=== PATIENT | female | born 1970 | race Caucasian/White ===

== ENCOUNTER → 2018-03-14 | Outpatient (CLI) | payer BC ==
[~2018-03-14] VITALS: Ht 157.5 cm; Wt 56.0 kg
[~2018-03-14] MED LIST: ACETAMINOPHEN 500 MG TABLET PO ONE; BACITRACIN 50,000 UNIT ONE; BUPIVACAINE/PF 0.5% ONE; CEFAZOLIN 1,000 MG ONE; DEXAMETHASONE 4 MG/ML, 1ML ONE; EPINEPHRINE 1 MG/ML, 1ML ONE; FENTANYL PF 100 MCG/2ML IV PRN; FENTANYL PF 250 MCG/5ML ONE; GABAPENTIN 300 MG CAPSULE PO ONE; HEPARIN 1,000 UNITS/ML, 30ML ONE; HYDROmorphone 1 MG/ML, 1ML IV PRN; LABETALOL 5MG/ML, 20ML IV PRN; LACTATED RINGERS 1,000 ML IV SCH; LIDOCAINE 1%-EPI 1:100K, 30ML ONE; LIDOCAINE-MPF 1%, 2ML INFIL ONE; MEPERIDINE/PF 25MG/0.5ML IVPush PRN; MIDAZOLAM 1 MG/ML, 2ML ONE; MORPHINE SULFATE 4 MG/ML, 1ML IVPush PRN; ONDANSETRON 2MG/ML, 2ML IV PRN; ONDANSETRON 2MG/ML, 2ML ONE; ONDANSETRON ODT 8 MG PO PRN; OXYcodone 5 MG/5 ML ORAL.SOL UDC PO PRN; OxyconTIN ER 20 MG TAB.ER PO ONE; PROMETHAZINE 12.5 MG SUPP PR PRN; PROMETHAZINE 25 MG SUPP PR PRN; PROMETHAZINE 25 MG/ML, 1ML IM PRN; PROMETHAZINE 25 MG/ML, 1ML IV PRN; PROPOFOL 10 MG/ML, 20ML ONE; ROCURONIUM 10MG/ML,5ML ONE; SODIUM CHLORIDE 0.9% PF 10ML ONE; SUCCINYLCHOLINE 20 MG/ML, 10ML ONE; hydrALAzine 20 MG/ML, 1ML IV PRN
[2018-03-14 06:51] VITALS: BP 117/83
== END | disposition home or self-care (01) ==
LOC: ORIP 05:52 → CLISVCS 05:52 → UNDOADMIN 05:52 → EDSTATUS 07:30 → UNDODISIN 12:10 → ORIP 14:50 → 2NE 14:50
PROVIDERS: ATTEND Orthopaedic Surgery Orthopaedic Surgery of the Spine
DX: Z02.9 Encounter for administrative examinations, unspecified (principal)
CPT/HCPCS: 36415; 86850; 86900; 86923; J0171; J0690; J1100; J1644; J2250; J2405; J2704; J3010; J3490; J0330; J7120

== ENCOUNTER 2018-04-11 07:30 | Inpatient (IN) | payer BC ==
[~2018-04-11] VITALS: Ht 157.5 cm; Wt 53.1 kg
[2018-04-11] MEDS ORDERED: LACTATED RINGERS 1,000 ML IV SCH (12:18)
[2018-04-11 12:33] VITALS: BP 105/75
[2018-04-11] MEDS ORDERED: LIDOCAINE 1%-EPI 1:100K, 30ML ONE (13:29)
[2018-04-11] MEDS ORDERED: THROMBIN 5,000 UNIT VIAL TP ONE (13:29)
[2018-04-11] MEDS ORDERED: BUPIVACAINE/PF-EPI 0.5% 1:200K ONE (13:29)
[2018-04-11] MEDS ORDERED: BACITRACIN 50,000 UNIT ONE (13:29)
[2018-04-11] MEDS ORDERED: HEPARIN 1,000 UNITS/ML, 30ML ONE (13:39)
[2018-04-11] MEDS ORDERED: FENTANYL PF 250 MCG/5ML ONE (13:54)
[2018-04-11] MEDS ORDERED: MIDAZOLAM 1 MG/ML, 2ML ONE (13:57)
[2018-04-11] MEDS ORDERED: PROPOFOL 50 ML ONE (13:59)
[2018-04-11] MEDS ORDERED: EPHEDRINE 50 MG/ML, 1ML ONE (14:03)
[2018-04-11] MEDS ORDERED: GENTAMICIN 80 MG/2 ML ONE (14:21)
[2018-04-11] MEDS ORDERED: ALBUTEROL/IPRATROPIUM 2.5MG/0.5MG, 3 ML NPPB PRN (15:00)
[2018-04-11] MEDS ORDERED: ONDANSETRON ODT 8 MG PO PRN (15:00)
[2018-04-11] MEDS ORDERED: PROCHLORPERAZINE 5 MG/ML, 2ML IM PRN (15:00)
[2018-04-11] MEDS ORDERED: DIAZEPAM 5 MG/ML, 2ML IVPush PRN (15:00)
[2018-04-11] MEDS ORDERED: ONDANSETRON 2MG/ML, 2ML IV PRN ×2 (15:00→18:30)
[2018-04-11] MEDS ORDERED: ACETAMINOPHEN 325 MG TABLET PO PRN (15:00)
[2018-04-11] MEDS ORDERED: FENTANYL PF 100 MCG/2ML IV PRN (15:00)
[2018-04-11] MEDS ORDERED: OXYcodone 5 MG/5 ML ORAL.SOL UDC PO PRN (15:00)
[2018-04-11] MEDS ORDERED: MEPERIDINE/PF 25MG/0.5ML IVPush PRN (15:00)
[2018-04-11] MEDS ORDERED: CEFAZOLIN 1,000 MG ONE (15:47)
[2018-04-11] MEDS ORDERED: ROCURONIUM 10MG/ML,5ML ONE (15:47)
[2018-04-11] MEDS ORDERED: ONDANSETRON 2MG/ML, 2ML ONE (15:47)
[2018-04-11] MEDS ORDERED: NEOSTIGMINE 1 MG/ML, 10ML ONE (15:47)
[2018-04-11] MEDS ORDERED: DEXAMETHASONE 4 MG/ML, 1ML ONE (15:47)
[2018-04-11] MEDS ORDERED: SUCCINYLCHOLINE 20 MG/ML, 10ML ONE (15:47)
[2018-04-11] MEDS ORDERED: PROPOFOL 10 MG/ML, 20ML ONE (15:47)
[2018-04-11] MEDS ORDERED: GLYCOPYRROLATE 0.2MG/1ML, 5ML ONE (15:47)
[2018-04-11] MEDS ORDERED: FENTANYL PF 100 MCG/2ML ONE (16:17)
[2018-04-11] MEDS ORDERED: HYDROmorphone 2 MG/ML, 1ML ONE (16:18)
[2018-04-11] MEDS: HYDROmorphone 1 MG/ML, 1ML IV PRN ×2 (16:22→16:56)
[2018-04-11] MEDS ORDERED: DIAZEPAM 5 MG/ML, 2ML IV PRN (18:30)
[2018-04-11] MEDS ORDERED: HYDROcodone/APAP 5/325 TABLET PO PRN (18:30)
[2018-04-11] MEDS ORDERED: OXYcodone/APAP 5/325MG TABLET PO PRN (18:30)
[2018-04-11] MEDS ORDERED: DIAZEPAM 5 MG TABLET PO PRN (18:30)
[2018-04-11 19:38] VITALS: BP 98/63
[2018-04-11] MEDS: D5%-0.9% NACL+KCL 20MEQ 1,000 ML IV SCH (21:22)
[2018-04-11] MEDS: CEFAZOLIN PMX 1GM/50ML 50 ML IVPB SCH (22:19)
[2018-04-12 00:15] VITALS: BP 94/65
[2018-04-12 04:06] VITALS: BP 93/57
[2018-04-12] MEDS: D5%-0.9% NACL+KCL 20MEQ 1,000 ML IV SCH ×2 (05:35→13:30)
[2018-04-12] MEDS: CEFAZOLIN PMX 1GM/50ML 50 ML IVPB SCH ×2 (05:35→14:00)
[2018-04-12] MEDS: ENOXAPARIN 30 MG/0.3 ML SQ SCH ×2 (05:35→19:35)
[2018-04-12 05:59] LABS: MEAN CORPUSCULAR HEMOGLOBIN 30.5 pg (27.0-34.8); MEAN CORPUSCULAR HGB CONC 34.1 g/dL (32.4-35.8); MEAN CORPUSCULAR VOLUME 89.3 fL (80-100); MEAN PLATELET VOLUME 8.5 fL (7.4-10.4); PLATELET COUNT 212 x10^3/uL (130-400); RED BLOOD COUNT 4.34 x10^6/uL (3.82-5.3); RED CELL DISTRIBUTION WIDTH 14.1 % (9.6-15.2)
[2018-04-12 06:37] LABS: BASOPHILS # (AUTO) 0.11 x10^3/uL (0-0.1); BASOPHILS % (AUTO) 1 % (0-1); EOSINOPHILS # (AUTO) 0.02 x10^3/uL (0-0.4); EOSINOPHILS % (AUTO) 0 % (1-7); LYMPHOCYTES # (AUTO) 2.04 x10^3/uL (1-3.4); LYMPHOCYTES % (AUTO) 11 % (22-44); MD SCAN; MONOCYTES # (AUTO) 1.25 x10^3/uL (0.2-0.8); MONOCYTES % (AUTO) 7 % (2-9); NEUTROPHILS # (AUTO) 15.89 x10^3/uL (1.8-6.8); NEUTROPHILS % (AUTO) 82 % (42-75)
[2018-04-12 07:39] VITALS: BP 90/55
[2018-04-12 13:36] VITALS: BP 95/63
[2018-04-12 20:11] VITALS: BP 100/64
[2018-04-13 02:00] VITALS: BP 107/66
[2018-04-13] MEDS: D5%-0.9% NACL+KCL 20MEQ 1,000 ML IV SCH (02:46)
[2018-04-13 04:46] LABS: BASOPHILS # (AUTO) 0.06 x10^3/uL (0-0.1); BASOPHILS % (AUTO) 1 % (0-1); EOSINOPHILS # (AUTO) 0.12 x10^3/uL (0-0.4); EOSINOPHILS % (AUTO) 1 % (1-7); LYMPHOCYTES # (AUTO) 2.61 x10^3/uL (1-3.4); LYMPHOCYTES % (AUTO) 21 % (22-44); MD NO; MEAN CORPUSCULAR HGB CONC 33.9 g/dL (32.4-35.8); MEAN CORPUSCULAR VOLUME 88.7 fL (80-100); MEAN PLATELET VOLUME 8.4 fL (7.4-10.4); MONOCYTES # (AUTO) 1.07 x10^3/uL (0.2-0.8); MONOCYTES % (AUTO) 9 % (2-9); NEUTROPHILS # (AUTO) 8.37 x10^3/uL (1.8-6.8); NEUTROPHILS % (AUTO) 69 % (42-75); PLATELET COUNT 204 x10^3/uL (130-400); RED BLOOD COUNT 4.23 x10^6/uL (3.82-5.3); RED CELL DISTRIBUTION WIDTH 13.8 % (9.6-15.2)
[2018-04-13] MEDS: ENOXAPARIN 30 MG/0.3 ML SQ SCH (07:30)
[2018-04-13 07:45] VITALS: BP 93/55
[2018-04-13 12:04] VITALS: BP 99/59
== END 2018-04-13 12:40 | disposition home or self-care (01) | DRG 460 ==
LOC: ORIP 11:39 → 4NOR 17:48 → DCLOUNGE 04-13 12:30
PROVIDERS: ADMIT Orthopaedic Surgery Orthopaedic Surgery of the Spine; ATTEND Orthopaedic Surgery Orthopaedic Surgery of the Spine
PROC: 0SG30A0 Fusion of Lumbosacral Joint with Interbody Fusion Device, Anterior Approach, Anterior Column, Open Approach (ICD-10-PCS; 2018-04-11)
PROC: 4A11X4G Monitoring of Peripheral Nervous Electrical Activity, Intraoperative, External Approach (ICD-10-PCS; 2018-04-11)
PROC: 0SB20ZZ Excision of Lumbar Vertebral Disc, Open Approach (ICD-10-PCS; principal; 2018-04-11 14:00)
DX: M51.27 Other intervertebral disc displacement, lumbosacral region (principal); M51.17 Intervertebral disc disorders with radiculopathy, lumbosacral region; M54.30 Sciatica, unspecified side
CPT/HCPCS: 36415; 72100; J3490; 85025; 86850; 86900; 86923; C1713; G0378; J0690; J1100; J1170; J1644; J1650; J2250; J2270; J2405; J2704; J2710; J3010; J3360; C1762; J0330; J1580; J3480; J7120